=== PATIENT | male | born 1960 | race Caucasian/White ===

== ENCOUNTER 2023-04-18 06:18 | Inpatient (IN) ==
[2023-04-14 16:03] LABS: Basophils # (Auto) 0.13 K/mcL (0.00-0.30); Eosinophils # (Auto) 0.32 K/mcL (0.00-0.70); Eosinophils % (Auto) 2.5 % (0.0-7.0); Hematocrit 41.7 % (40.1-51.0); Hemoglobin 12.5 g/dL (13.7-17.5); Lymphocytes # (Auto) 1.77 K/mcL (1.50-4.80); Lymphocytes % (Auto) 13.6 % (15.5-49.0); Mean Cell Volume 76.2 fL (80.0-100.0); Mean Platelet Volume 9.8 fL (8.8-12.5); Monocytes % (Auto) 5.4 % (1.0-12.0); Platelet Count 587 K/mcL (140-440); RBC 5.47 M/mcL (4.63-6.08); Red Cell Distribution Width 21.1 % (11.5-14.5)
[2023-04-14 16:04] LABS: INR 1.1 (0.9-1.1); Partial Thromboplastin Time 31.8 sec (20.0-37.0); Prothrombin Time 14.9 sec (11.9-14.5)
[2023-04-14 17:01] LABS: ALT/SGPT 11 U/L (<40); AST/SGOT 19 U/L (<40); Albumin 4.2 gm/dL (3.2-5.2); Albumin/Globulin Ratio 1.6 (1.0-2.3); Alkaline Phosphatase 75 U/L (39-117); Bilirubin,Total 0.3 mg/dL (0.1-1.0); Blood Urea Nitrogen 17 mg/dL (6-20); Carbon Dioxide 26 mmol/L (22-30); Chloride 104 mmol/L (96-108); Globulin 2.7 gm/dL (2.2-3.7); Glomerular Filtration Rate 54; Glucose 121 mg/dL (70-105)
[~2023-04-18 06:18] MED LIST: ceFAZolin 2 GM in DEXTROSE 5% IN WATER 50 ML IV SCH
[2023-04-18] MEDS ORDERED: ROCURONIUM 10 MG/ML ML IV ONE ×2 (07:07→07:56)
[2023-04-18] MEDS ORDERED: PROPOFOL 200 MG/20 ML VIAL IV ONE (07:07)
[2023-04-18] MEDS ORDERED: fentaNYL 100 MCG/2 ML VIAL IV ONE (07:07)
[2023-04-18] MEDS ORDERED: ONDANSETRON 4 MG/2 ML VIAL ONE (07:08)
[2023-04-18] MEDS ORDERED: BUPIVACAINE PF 0.5% 10 ML VIAL ONE (07:10)
[2023-04-18] MEDS ORDERED: GENTAMICIN SULFATE 800 MG/20 ML VIAL IR ONE (07:30)
[2023-04-18] MEDS ORDERED: VANCOMYCIN 1 GM VIAL TOPICAL SCH (07:30)
[2023-04-18] MEDS ORDERED: VANCOMYCIN 1,500 MG in 0.9 % SODIUM CHLORIDE 500 ML IV SCH (07:30)
[2023-04-18] MEDS ORDERED: PHENYLephrine 1 MG/10 ML SYRINGE (ANEST) ONE (07:44)
[2023-04-18] MEDS ORDERED: HYDROmorphone 1 MG/ML SYRINGE ONE (08:55)
[2023-04-18] MEDS ORDERED: SUGAMMADEX SODIUM 200 MG/2 ML VIAL IV ONE (08:57)
[2023-04-18] MEDS ORDERED: ONDANSETRON 4 MG ODT TABLET SL PRN (09:36)
[2023-04-18] MEDS ORDERED: ONDANSETRON 4 MG/2 ML VIAL IV PRN ×2 (09:36→09:40)
[2023-04-18] MEDS ORDERED: IPRATROPIUM/ALBUTEROL 3 ML AMPUL.NEB NEB PRN (09:40)
[2023-04-18] MEDS ORDERED: NALOXONE HCL 0.4 MG/ML VIAL IV PRN (09:40)
[2023-04-18] MEDS ORDERED: fentaNYL 100 MCG/2 ML VIAL IV PRN (09:40)
[2023-04-18] MEDS ORDERED: ACETAMINOPHEN 1,000 MG/100 ML BAG IV ONE (09:40)
[2023-04-18] MEDS ORDERED: 0.9 % SODIUM CHLORIDE 1,000 ML IV SCH (09:45)
[2023-04-18] MEDS: oxyCODONE IR 5 MG TABLET PO PRN ×2 (11:08→15:29)
[2023-04-18] MEDS: 0.9 % SODIUM CHLORIDE 10 ML SYRINGE IV SCH ×2 (13:02→21:01)
[2023-04-18] MEDS: HYDROmorphone 0.5 MG/0.5 ML SYRINGE IV PRN ×2 (13:18→13:44)
[2023-04-18] MEDS ORDERED: GABAPENTIN 300 MG CAPSULE PO PRN (13:22)
[2023-04-18] MEDS: SENNOSIDES 1 TABLET PO SCH (20:52)
[2023-04-18] MEDS: DOCUSATE SODIUM 100 MG CAPSULE PO SCH (20:52)
[2023-04-18] MEDS: MUPIROCIN OINT 2% 22GM NARES SCH (20:52)
[2023-04-18] MEDS: VANCOMYCIN 1,500 MG in 0.9 % SODIUM CHLORIDE 500 ML IV SCH (20:54)
[2023-04-18] MEDS ORDERED: traZODone HCL 50 MG TABLET PO PRN (21:00)
[2023-04-19] MEDS: 0.9 % SODIUM CHLORIDE 10 ML SYRINGE IV SCH ×3 (04:55→23:02)
[2023-04-19] MEDS: oxyCODONE IR 5 MG TABLET PO PRN ×4 (07:22→20:22)
[2023-04-19] MEDS: HYDROXYUREA 500 MG CAPSULE PO SCH (09:46)
[2023-04-19] MEDS: LOSARTAN 50 MG TABLET PO SCH (09:47)
[2023-04-19] MEDS: MUPIROCIN OINT 2% 22GM NARES SCH ×2 (09:47→20:24)
[2023-04-19] MEDS: amLODIPine 10 MG TABLET PO SCH (09:47)
[2023-04-19] MEDS: DOCUSATE SODIUM 100 MG CAPSULE PO SCH ×2 (09:47→20:20)
[2023-04-19] MEDS: CLOPIDOGREL 75 MG TABLET PO SCH (09:47)
[2023-04-19] MEDS: VANCOMYCIN 1,500 MG in 0.9 % SODIUM CHLORIDE 500 ML IV SCH (09:48)
[2023-04-19] MEDS: ACETAMINOPHEN 325 MG TABLET PO PRN (20:19)
[2023-04-19] MEDS: SENNOSIDES 1 TABLET PO SCH (20:20)
[2023-04-20] MEDS: 0.9 % SODIUM CHLORIDE 10 ML SYRINGE IV SCH ×3 (04:25→21:00)
[2023-04-20] MEDS: oxyCODONE IR 5 MG TABLET PO PRN ×2 (04:25→14:18)
[2023-04-20] MEDS: amLODIPine 10 MG TABLET PO SCH (08:46)
[2023-04-20] MEDS: CLOPIDOGREL 75 MG TABLET PO SCH (08:46)
[2023-04-20] MEDS: LOSARTAN 50 MG TABLET PO SCH (08:46)
[2023-04-20] MEDS: HYDROXYUREA 500 MG CAPSULE PO SCH (08:46)
[2023-04-20] MEDS: MUPIROCIN OINT 2% 22GM NARES SCH ×2 (08:46→20:57)
[2023-04-20] MEDS: DOCUSATE SODIUM 100 MG CAPSULE PO SCH ×2 (08:47→20:57)
[2023-04-20] MEDS: ACETAMINOPHEN 325 MG TABLET PO PRN (16:51)
[2023-04-20] MEDS: SENNOSIDES 1 TABLET PO SCH (20:57)
[2023-04-21] MEDS: 0.9 % SODIUM CHLORIDE 10 ML SYRINGE IV SCH ×3 (04:33→20:16)
[2023-04-21] MEDS: amLODIPine 10 MG TABLET PO SCH (08:38)
[2023-04-21] MEDS: MUPIROCIN OINT 2% 22GM NARES SCH ×2 (08:38→20:15)
[2023-04-21] MEDS: CLOPIDOGREL 75 MG TABLET PO SCH (08:38)
[2023-04-21] MEDS: LOSARTAN 50 MG TABLET PO SCH (08:38)
[2023-04-21] MEDS: HYDROXYUREA 500 MG CAPSULE PO SCH (08:38)
[2023-04-21] MEDS: DOCUSATE SODIUM 100 MG CAPSULE PO SCH ×2 (08:38→20:16)
[2023-04-21] MEDS ORDERED: MAGNESIUM HYDROXIDE 30 ML ORAL.SUSP PO PRN (12:56)
[2023-04-21] MEDS: oxyCODONE IR 5 MG TABLET PO PRN ×2 (13:56→19:13)
[2023-04-21] MEDS: SENNOSIDES 1 TABLET PO SCH (20:16)
[2023-04-22] MEDS: 0.9 % SODIUM CHLORIDE 10 ML SYRINGE IV SCH ×2 (04:55→14:42)
[2023-04-22 07:15] LABS: ALT/SGPT 20 U/L (<40); AST/SGOT 20 U/L (<40); Albumin 3.5 gm/dL (3.2-5.2); Albumin/Globulin Ratio 0.9 (1.0-2.3); Alkaline Phosphatase 105 U/L (39-117); Bilirubin,Total 0.4 mg/dL (0.1-1.0); Blood Urea Nitrogen 20 mg/dL (6-20); Calcium 8.9 mg/dL (8.6-10.4); Carbon Dioxide 27 mmol/L (22-30); Chloride 98 mmol/L (96-108); Globulin 3.7 gm/dL (2.2-3.7); Glomerular Filtration Rate 65; Glucose 91 mg/dL (70-105)
[2023-04-22 07:32] LABS: Basophils # (Auto) 0.19 K/mcL (0.00-0.30); Basophils % (Auto) 1.1 % (0.0-2.0); Eosinophils # (Auto) 0.39 K/mcL (0.00-0.70); Eosinophils % (Auto) 2.3 % (0.0-7.0); Hematocrit 42.1 % (40.1-51.0); Hemoglobin 12.8 g/dL (13.7-17.5); Lymphocytes # (Auto) 2.02 K/mcL (1.50-4.80); Lymphocytes % (Auto) 12.1 % (15.5-49.0); Mean Cell Volume 74.4 fL (80.0-100.0); Mean Corpuscular HGB Conc 30.4 g/dL (31.0-36.0); Mean Platelet Volume 10.1 fL (8.8-12.5); Monocytes # (Auto) 1.18 K/mcL (0.10-0.90); Monocytes % (Auto) 7.1 % (1.0-12.0); Neutrophils % (Auto) 76.8 % (38.0-78.0); Platelet Count 1046 K/mcL (140-440); RBC 5.66 M/mcL (4.63-6.08); Red Cell Distribution Width 20.6 % (11.5-14.5); WBC 16.6 K/mcL (4.5-11.0)
[2023-04-22] MEDS: LOSARTAN 50 MG TABLET PO SCH (08:26)
[2023-04-22] MEDS: amLODIPine 10 MG TABLET PO SCH (08:26)
[2023-04-22] MEDS: CLOPIDOGREL 75 MG TABLET PO SCH (08:26)
[2023-04-22] MEDS: ASPIRIN 325 MG ENTERIC COATED TABLET PO SCH ×2 (08:26→21:01)
[2023-04-22] MEDS: DOCUSATE SODIUM 100 MG CAPSULE PO SCH ×2 (08:26→21:01)
[2023-04-22] MEDS: HYDROXYUREA 500 MG CAPSULE PO SCH (08:26)
[2023-04-22] MEDS: MUPIROCIN OINT 2% 22GM NARES SCH ×2 (08:26→21:02)
[2023-04-22] MEDS: ACETAMINOPHEN 325 MG TABLET PO PRN (18:48)
[2023-04-22] MEDS: SENNOSIDES 1 TABLET PO SCH (21:01)
[2023-04-23] MEDS: LOSARTAN 50 MG TABLET PO SCH (08:28)
[2023-04-23] MEDS: amLODIPine 10 MG TABLET PO SCH (08:28)
[2023-04-23] MEDS: HYDROXYUREA 500 MG CAPSULE PO SCH (08:28)
[2023-04-23] MEDS: MUPIROCIN OINT 2% 22GM NARES SCH ×2 (08:28→20:28)
[2023-04-23] MEDS: ASPIRIN 325 MG ENTERIC COATED TABLET PO SCH ×2 (08:28→20:28)
[2023-04-23] MEDS: DOCUSATE SODIUM 100 MG CAPSULE PO SCH ×2 (08:28→20:28)
[2023-04-23] MEDS: CLOPIDOGREL 75 MG TABLET PO SCH (08:28)
[2023-04-23] MEDS: 0.9 % SODIUM CHLORIDE 10 ML SYRINGE IV SCH ×4 (08:29→20:29)
[2023-04-23] MEDS: oxyCODONE IR 5 MG TABLET PO PRN ×3 (08:34→20:28)
[2023-04-23] MEDS: SENNOSIDES 1 TABLET PO SCH (20:28)
[2023-04-24] MEDS: 0.9 % SODIUM CHLORIDE 10 ML SYRINGE IV SCH (07:21)
[2023-04-24] MEDS: HYDROXYUREA 500 MG CAPSULE PO SCH (08:48)
[2023-04-24] MEDS: amLODIPine 10 MG TABLET PO SCH (08:48)
[2023-04-24] MEDS: CLOPIDOGREL 75 MG TABLET PO SCH (08:48)
[2023-04-24] MEDS: ASPIRIN 325 MG ENTERIC COATED TABLET PO SCH (08:48)
[2023-04-24] MEDS: LOSARTAN 50 MG TABLET PO SCH (08:48)
[2023-04-24] MEDS: MUPIROCIN OINT 2% 22GM NARES SCH (08:49)
[2023-04-24] MEDS: DOCUSATE SODIUM 100 MG CAPSULE PO SCH (08:49)
== END 2023-04-24 10:53 | disposition home or self-care (01) | DRG 352 ==
LOC: MEDSUR 06:18 → SUR 06:18 → MEDSUR 12:22
PROVIDERS: ADMIT Family Medicine Adult Medicine; ATTEND Family Medicine Adult Medicine